=== PATIENT | male | born 1955 | race Caucasian/White ===

== ENCOUNTER 2021-06-10 16:16 | Outpatient (CLI) | payer MEDICARE, SELFPAY ==
--- NOTE | ~2021-06-10 | US_ITS ---
EXAMINATION: US venous doppler [facility] DATE: 06/10/2021 16:40 INDICATION: Left lower limb pain TECHNIQUE: Grayscale ultrasound images without and with compression and Doppler ultrasound images of the left lower extremity veins were obtained. COMPARISON: None. FINDINGS: The visualized portions of left common femoral vein, profunda (deep) femoral vein, femoral vein, popl iteal vein, peroneal veins, posterior tibial veins, gastrocnemius vein and greater saphenous vein out flow are patent. IMPRESSION: 1. No deep venous thrombosis in the left lower limb. Reviewed, dictated and finalized at location A.
== END 2021-06-10 16:17 | disposition home or self-care (01) ==
LOC: ANHIMG 16:19
PROVIDERS: Visit Provider Internal Medicine
DX: M79.662 Pain in left lower leg (principal)
CPT/HCPCS: 93971

== ENCOUNTER 2025-06-15 09:04 | Outpatient (CLI) | payer MEDICARE, SELFPAY ==
--- NOTE | ~2025-06-15 | US_ITS ---
EXAMINATION: US aorta [facility] DATE: 06/22/2025 13:37 CDT INDICATION: Screening abdominal aortic aneurysm TECHNIQUE: Grayscale, color Doppler, and pulsed Doppler images of the aorta and common iliac arteries were obtained. COMPARISON: None. FINDINGS: The proximal aorta measures 2 cm greatest sagittal dimension. The mid aorta measures 2.1 cm greatest sagittal dimension. The distal aorta measures 1.9 cm greatest sagittal dimension. The right common internal iliac artery measures 1.5 cm. The left common iliac artery measures 1.3 cm. IMPRESSION: 1. Normal caliber aorta without aneurysm. Reviewed, dictated and finalized at location O.
--- OUTSIDE RECORDS SUMMARY | 2025-06-15 09:19 | XMS_ITS | Clinical Summary ---
Author Organization [facility] Health Address [address] [place] [address] Care Team Providers Care Slubber Machine Operator Name Role Phone Unavailable Primary Care Provider Unavailabl e Allergies No known active allergies Medications clindamycin (CLEOCIN) 300 mg capsule 03/12/2022 Active amoxicillin (AMOXIL) 500 mg tablet TAKE 1 TABLET BY MOUTH THREE TIMES DAILY UNTIL ALL TAKEN 02/06/2022 Active aspirin 81 mg tablet Take 81 mg by mouth 1 (one) time each day. Active clindamycin (CLEOCIN) 300 mg capsule TAKE 1 CAPSULE BY MOUTH FOUR TIMES DAILY UNTIL ALL TAKEN 03/11/2022 Active HYDROcodone-heron taminophen (NORCO) 5-325 mg tablet Take 1 tablet by mouth. 04/17/2021 Active lisinopriL (PRINIVIL,ZESTR IL) 10 mg tablet 03/18/2022 Active lisinopriL (PRINIVIL,ZESTR IL) 20 mg tablet Take 1 tablet by mouth 1 (one) time each day. 12/09/2021 Active lisinopriL (PRINIVIL,ZESTR IL) 20 mg tablet 03/13/2022 Active xfzdsjvy-gnp-DD -lycopen-lutein 0.4 mg-300 mcg- 250 mcg tablet Take 1 tablet by mouth 1 (one) time each day. Active tamsulosin (FLOMAX) 0.4 mg 24 hr capsule 03/13/2022 Activ e tamsulosin (FLOMAX) 0.4 mg 24 hr capsule TAKE 2 CAPSULES (0.8MG TOTAL) EVERY EVENING 12/09/2021 Active nicotine polacrilex (COMMIT) 2 mg lozenge Take 2 mg by mouth 1 (one) time each day if needed. 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 Overview (03/18/2022): Description: OD/OS 07/2011 NAION Social History Tobacco Use Types Packs/Day Years Used Date Smoking Tobacco: Former Cigarettes 1 10 0 2001 - 2011 Smokeless Tobacco: Never Tobacco Cessation:Counseling Given: Not Answered Alcohol Use Standard Drinks/Week Comments Not Currently 0 (1 standard drink = 0.6 oz pur e alcohol) Very rare Sex and Gender Information Value Date Recorded Sex Assigned at Not on file Legal Sex Male 1:49 PM PDT Gender Identity Not on file Sexual Orientation Not on file Plan of Treatment Health Maintenance Due Date Last Done Comments Dental Oral Exam 1954 Dental Prophylaxis 1954 Dental X-Ray: Bitewings 1954 Dental X-Ray: Full Mouth 1954 Dental X-Ray: Panoramic 1955 Insurance O
--- OUTSIDE RECORDS SUMMARY | 2025-06-15 09:19 | XMS_ITS | Encounter Summary ---
Author Organization [facility] Health Address [address] [place] [address] Care Team Providers Care Visual Merchandising Manager Name Role Phone Unavailable Primary Care Provider Unavailabl e Prior Encounters Date Type Department Care Team Description 03/18/2022 Travel 03/18/2022 11:15 AM CDT Office Visit [facility] [address] [place] [address] Jose Luis Chandler DDS Plan of Treatment Not on file Procedures Procedure Name Priority Date/Time Associated Diagnosis Comments 3 ENDODONTIC THERAPY, MOLAR TOOTH (EXCLUDING FINAL WORSHIP) Routine 03/18/2022 11:15 AM CDT 3 INTRAORIFICE BARRIER Routine 11:15 AM CDT 3 TREATMENT OF ROOT CANAL OBSTRUCTION; NON-SURGICAL ACCESS Routine 03/18/2022 11:15 AM CDT 3 PULP VITALITY TESTS Routine 03/18/2022 11:15 AM CDT ENDO CONSULT Routine 03/18/2022 11:15 AM CDT Visit Diagnoses Not on file Insurance [employer] [id number]
--- OUTSIDE RECORDS SUMMARY | 2025-06-15 09:19 | XMS_ITS | Clinical Summary ---
Author Organization [facility] Address [address] [place] [address] Care Team Providers Care Dyed Raw Stock Blower Feeder Name Role Phone Javed Alberts MD Primary Care Provider [phone] Allergies No known active allergies Medications lisinopriL (PRINIVIL,ZESTRI L) 20 mg tabletIndication s:hypertension Take 20 mg by mouth daily Active tamsulosin (FLOMAX) 0.4 mg extended release capsule Take 0.8 mg by mouth daily Active nedgkfnh-xdm-OY- lycopen-lutein 0.4-300-250 mg-mcg-mcg tabletIndication s:Vitamin Deficiency Prevention Take 1 tablet by mouth daily Active HYDROcodone-acet aminophen (NORCO) 5-325 mg per tabletIndication s:Pain Take 1 tablet by mouth every 6 (six) hours as needed for pain 20 tablet 04/17/2021 Active Active Problems Problem Noted Date Diagnosed Date Blurring of visual image 07/16/2011 Overview (01/21/2018): Description: OD Visual field defect 07/16/2011 Surgical History Surgery Date Site/Laterality Comments CYST REMOVAL Right Medical History Medical History Date Comments Personal history of other di seases of the circulatory system History of hypertension - (A dded by TW Conv) Hypertension Stroke (HCC) EYE STROKE, 40% SPOT IN RIGHT EYE Obesity Social History Tobacco Use Types Packs/Day Years Used Date Smoking Tobacco: Former Cigarettes 1 10 2 001 - 10/12/2010 Smokeless Tobacco: Never AUDIT-C Answer Date Recorded Q1: How often do you have a drink containing alc ohol? Never 04/05/2021 Average Number of Drinks Not on file 06/25/2 021 Q3: How often do you have si x or more drinks on one occasion? 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 Gender Identity Not on file Sexual Orientation Not on file Obstetrics History Last Filed Vital Signs Vital Sign Reading Time Taken Comments Blood Pressure 112/79 04/17/2021 11:40 AM CDT Pulse 71 04/17/2021 11:40 AM CDT Temperature 36.2 C (97.1 F) 04/17/2021 11:10 AM CDT Respiratory Rate 16 04/17/2021 11:4 0 AM CDT Oxygen Saturation 97% 04/17/2021 11: 40 AM CDT Inhaled Oxygen Concentration - - Weight 134.2 kg (295 lb 12.8 oz) 04/17/2021 7:21 AM CDT Height 182.9 cm (6') 04/17/2021 7:21 AM CDT Body Mass Index 40.12 04/17/2021 7:21 AM CDT Plan of Treatment Not on file Insurance MEDICARE [employer] SENIOR SUPPLEMENT MEDICARE [employer] SENIOR SUPPLEMENT Care Teams Dyed Raw Stock Blower Feeder Relationship Specialty Start Date End Date Javed Alberts MD [address] [place] [address] PCP - General Internal Medicine 04/04/21
== END 2025-06-15 09:05 | disposition home or self-care (01) ==
PROVIDERS: Visit Provider Internal Medicine
DX: Z13.6 Encounter for screening for cardiovascular disorders (principal); E11.59 Type 2 diabetes mellitus with other circulatory complications
CPT/HCPCS: 76706